=== PATIENT | female | born 1950 | race African-American/Black ===

== ENCOUNTER 2019-07-04 09:07 | Emergency (ER) | payer MEDICARE, OTHER ==
[~2019-07-04] VITALS: Ht 162.6 cm; Wt 63.0 kg
[2019-07-04 11:37] VITALS: BP 121/74
== END 2019-07-04 11:41 | disposition home or self-care (01) ==
LOC: ER 09:07
DX: E05.00 Thyrotoxicosis with diffuse goiter without thyrotoxic crisis or storm (principal); F17.210 Nicotine dependence, cigarettes, uncomplicated; Z76.0 Encounter for issue of repeat prescription

== ENCOUNTER 2021-10-22 08:31 | Emergency (ER) | payer MEDICARE ==
[~2021-10-22] VITALS: Ht 165.1 cm; Wt 57.6 kg
[2021-10-22 09:00] VITALS: BP 128/73
[2021-10-22] MEDS ORDERED: LEVO100T8 PO (10:25)
== END 2021-10-22 10:35 | disposition home or self-care (01) ==
LOC: ER 08:31
DX: E03.9 Hypothyroidism, unspecified (principal); F17.210 Nicotine dependence, cigarettes, uncomplicated; Z76.0 Encounter for issue of repeat prescription

== ENCOUNTER → 2022-05-21 | Outpatient (CLI) | payer MEDICARE ==
[~2022-05-21] MED LIST: LEVO100T8 PO
[2022-05-21 12:25] LABS: Basophils # (auto) 0 10 ^3/uL (0-0.2); Basophils % (auto) 0.8 % (0.0-2.0); Eosinophils # (auto) 0 10 ^3/uL (0-0.8); Eosinophils % (auto) 0.5 % (0.0-7.0); Hematocrit 35.8 % (36.0-46.0); Hemoglobin 11.8 g/dL (12.2-16.2); Lymphocytes # (auto) 2.1 10 ^3/uL (0.4-5.4); Lymphocytes % (auto) 41.2 % (10.0-50.0); Mean Corpuscular Hemoglobin 29.5 pg (28.0-32.0); Mean Corpuscular Volume 89.2 fL (80.0-100.0); Monocytes # (auto) 0.4 10 ^3/uL (0-1.3); Monocytes % (auto) 7.6 % (0.0-12.0); Neutrophils # (auto) 2.6 10 ^3/uL (1.6-8.6); Neutrophils % (auto) 49.9 % (37.0-80.0); Red Blood Cells 4.02 10^6/uL (4.0-5.20); Red Cell Distribution Width 16.5 % (11.8-14.3); White Blood Cell 5.2 10^3/uL (4.4-10.8)
[2022-05-21 13:18] LABS: Albumin 3.7 g/dL (3.4-5.0); BUN/Creatinine Ratio 30.2; Calcium 9.5 mg/dL (8.5-10.1); Potassium 3.7 mmol/L (3.5-5.1)
[2022-05-21 13:20] LABS: Bilirubin, Total 0.6 mg/dL (0.2-1.0); Total Protein 7.6 g/dL (6.4-8.2)
== END | disposition home or self-care (01) ==
LOC: LAB 12:09
PROVIDERS: ATTEND Nurse Practitioner Family
DX: E03.9 Hypothyroidism, unspecified (principal); Z76.89 Persons encountering health services in other specified circumstances
CPT/HCPCS: 36415; 80053; 84439; 84443; 85025

== ENCOUNTER 2023-11-24 09:54 | Inpatient (IN) | payer MEDICARE, OTHER ==
[~2023-11-24] VITALS: Ht 160 cm; Wt 55.5 kg
[2023-11-24] MEDS: ONDANSETRON HCL 4 MG/2 ML VIAL IV ONE (10:50)
[2023-11-24] MEDS: SODIUM CHLORIDE 0.9% 1,000 ML IV ONE (10:50)
[2023-11-24 11:08] LABS: Chloride 98 mmol/L (98-107); Potassium 5.2 mmol/L (3.5-5.1); Sodium 132 mmol/L (136-145)
[2023-11-24 11:09] LABS: Anion Gap 12 (5-15); Carbon Dioxide 22 mmol/L (20-30)
[2023-11-24 11:10] LABS: Calcium 10.1 mg/dL (8.7-10.4); Eosinophils # (auto) 0 10 ^3/uL (0-0.8); Hemoglobin 13.2 g/dL (12.2-16.2); Mean Corpuscular Hemoglobin 29.5 pg (28.0-32.0)
[2023-11-24 11:11] LABS: Basophils # (auto) 0.1 10 ^3/uL (0-0.2); Basophils % (auto) 0.9 % (0.0-2.0); Eosinophils % (auto) 0.1 % (0.0-7.0); Hematocrit 38.6 % (36.0-46.0); Lymphocytes # (auto) 0.8 10 ^3/uL (0.4-5.4); Lymphocytes % (auto) 9.5 % (10.0-50.0); Mean Corpuscular Hgb Conc. 34.3 g/dL (32.0-36.0); Monocytes # (auto) 1.1 10 ^3/uL (0-1.3); Monocytes % (auto) 12.4 % (0.0-12.0); Neutrophils # (auto) 6.6 10 ^3/uL (1.6-8.6); Neutrophils % (auto) 77.1 % (37.0-80.0); Nucleated Red Blood Cells % 0.2 %; Red Blood Cells 4.48 10^6/uL (4.0-5.20); White Blood Cell 8.5 10^3/uL (4.4-10.8)
[2023-11-24 11:14] LABS: Blood Urea Nitrogen 53 mg/dL (9-23); Glucose 122 mg/dL (74-106)
[2023-11-24 11:15] LABS: BUN/Creatinine Ratio 52.5 (10.0-20.0)
[2023-11-24 12:06] VITALS: PULSE 93; RESP 20; O2SAT 97
[2023-11-24 13:18] LABS: Urine Bacteria FEW /hpf (None Seen); Urine Blood Negative /uL (Negative); Urine Clarity Turbid (Clear); Urine Color Dark-Yellow (Yellow); Urine Mucus FEW (None Seen); Urine Protein, UAD 1+ (Negative); Urine Specific Gravity 1.021 (1.001-1.035); Urine Urobilinogen Normal (Negative); Urine WBC 6 /hpf (0 - 5); Urine pH 5.5 (5.0-9.0)
[2023-11-24] MEDS ORDERED: DOCUSATE SOD 100 MG CAP PO PRN (14:00)
[2023-11-24] MEDS ORDERED: HYDROcodone-ACET 5/325MG TAB PO PRN (14:00)
[2023-11-24] MEDS ORDERED: ACETAMINOPHEN 325 MG TAB PO PRN (14:00)
[2023-11-24] MEDS ORDERED: ONDANSETRON HCL 4 MG/2 ML VIAL IV PRN (14:00)
[2023-11-24] MEDS: SODIUM CHLORIDE 0.9% 1,000 ML IV SCH (14:09)
[2023-11-24] MEDS ORDERED: NITROGLYCERIN 0.4 MG SL TAB SL PRN (14:30)
[2023-11-24] MEDS ORDERED: MORPHINE SULFATE INJ 2 MG/ml SYRG IV PRN (14:30)
[2023-11-24] MEDS ORDERED: SODIUM ZIRCONIUM CYCL 10 GM PAK PO ONE (14:45)
[2023-11-24 15:39] VITALS: BP 116/71; RESP 20; TEMP 98.3; O2SAT 96
[2023-11-24 16:00] VITALS: PULSE 102
[2023-11-25] MEDS ORDERED: LEVOTHYROXINE SODIUM 100 MCG TAB PO SCH (06:00)
== END 2023-11-24 19:07 | disposition left against medical advice (07) | DRG 948 ==
LOC: ER 09:54 → TELE 14:24
PROVIDERS: ADMIT Nurse Practitioner Family; ATTEND Nurse Practitioner Family
DX: R53.1 Weakness (principal); E03.9 Hypothyroidism, unspecified; Z53.29 Procedure and treatment not carried out because of patient's decision for other reasons; F17.210 Nicotine dependence, cigarettes, uncomplicated; Z79.899 Other long term (current) drug therapy
CPT/HCPCS: 36415; 80048; 81001; 84443; 84484; 85025; 93005; 96361; 96374; G0378; J2405

== ENCOUNTER 2023-11-29 18:33 | Inpatient (IN) | payer OTHER ==
[2023-11-29] VITALS (20 sets, daily range): BP systolic 89–269; BP diastolic 50–235; PULSE 95–118; RESP 16–35; TEMP 85.8–97.5; O2SAT 96–100
[~2023-11-29] VITALS: Ht 162.6 cm; Wt 57.0 kg
[2023-11-29] MEDS ORDERED: ONDANSETRON HCL 4 MG/2 ML VIAL IV PRN (20:00)
[2023-11-29] MEDS: SUCCINYLCHOLINE CHLORIDE 20 MG/ML 10ML VIAL IV ONE ×2 (20:00→20:59)
[2023-11-29] MEDS ORDERED: ACETAMINOPHEN 325 MG TAB PO PRN (20:00)
[2023-11-29] MEDS: LACTULOSE 20Gm/30ML SOLN PO SCH (20:00)
[2023-11-29] MEDS ORDERED: DOCUSATE SOD 100 MG CAP PO PRN (20:00)
[2023-11-29] MEDS: ETOMIDATE (2MG/ML) 20ML VIAL IV ONE ×2 (20:00→20:59)
[2023-11-29] MEDS ORDERED: HYDROcodone-ACET 5/325MG TAB PO PRN (20:00)
[2023-11-29] MEDS ORDERED: HYDROmorphone HCL 2 MG/ML VL/or syr IV PRN (20:00)
[2023-11-29] MEDS: PROPOFOL 100 ML IV ONE (20:19)
[2023-11-29 20:23] LABS: Basophils # (auto) 0.1 10 ^3/uL (0-0.2); Basophils % (auto) 1.4 % (0.0-2.0); Eosinophils # (auto) 0 10 ^3/uL (0-0.8); Eosinophils % (auto) 0.2 % (0.0-7.0); Hematocrit 38.2 % (36.0-46.0); Hemoglobin 12.8 g/dL (12.2-16.2); Lymphocytes # (auto) 0.7 10 ^3/uL (0.4-5.4); Lymphocytes % (auto) 13.5 % (10.0-50.0); Mean Corpuscular Hemoglobin 28.9 pg (28.0-32.0); Mean Corpuscular Hgb Conc. 33.5 g/dL (32.0-36.0); Mean Corpuscular Volume 86.2 fL (80.0-100.0); Monocytes # (auto) 0.2 10 ^3/uL (0-1.3); Monocytes % (auto) 4.6 % (0.0-12.0); Neutrophils # (auto) 3.9 10 ^3/uL (1.6-8.6); Neutrophils % (auto) 80.3 % (37.0-80.0); Nucleated Red Blood Cells % 1.3 %; Red Blood Cells 4.43 10^6/uL (4.0-5.20); Red Cell Distribution Width 16.3 % (11.8-14.3); White Blood Cell 4.9 10^3/uL (4.4-10.8)
[2023-11-29 20:34] LABS: Alanine Aminotransferase 104 U/L (7-40); Albumin 3.3 g/dL (3.2-4.8); Alkaline Phosphatase 638 U/L (46-116); Anion Gap 16 (5-15); Aspartate Aminotransferase 248 U/L (13-40); Bilirubin, Total 12.4 mg/dL (0.2-1.0); Blood Urea Nitrogen 78 mg/dL (9-23); Calcium 9.7 mg/dL (8.7-10.4); Carbon Dioxide 18 mmol/L (20-30); Chloride 100 mmol/L (98-107); Glucose 158 mg/dL (74-106); Potassium 5.2 mmol/L (3.5-5.1); Sodium 134 mmol/L (136-145); Total Protein 6.2 g/dL (5.7-8.2)
[2023-11-29 20:38] LABS: Lactic Acid w/Reflex 7.6 mmol/L (0.4-2.0)
[2023-11-29] MEDS ORDERED: AMIODARONE BOLUS KIT 100 ML IV ONE (20:45)
[2023-11-29] MEDS: SODIUM CHLORIDE 0.9% 1,000 ML IV SCH ×2 (20:45→20:59)
[2023-11-29] MEDS: PANTOPRAZOLE 40mg/50ML NS AE 50 ML IV SCH (20:45)
[2023-11-29] MEDS: LACTATED RINGER'S 2,000 ML IV ONE (20:45)
[2023-11-29] MEDS: MIDAZOLAM DRIP 50 mg/50mL 50 ML IV ONE (20:57)
[2023-11-29] MEDS: MIDAZOLAM DRIP 50 mg/50mL 50 ML IV SCH (20:57)
[2023-11-29] MEDS: PROPOFOL 100 ML IV SCH (20:58)
[2023-11-29] MEDS: NOREPINEPHRINE 8 MG/250ML KIT 250 ML IV ONE (20:59)
[2023-11-29] MEDS ORDERED: AMIODARONE 450mg/250ml AE 250 ML IV SCH (21:00)
[2023-11-29 21:04] LABS: BUN/Creatinine Ratio 53.1 (10.0-20.0)
[2023-11-29] MEDS: PANTOPRAZOLE 40mg/50ML NS AE 50 ML IV ONE (21:05)
[2023-11-29 21:42] LABS: Base Excess -9.5 mmol/L (-2.0-2.0)
[2023-11-29] MEDS: SODIUM CHLOR 0.9% PF (SALINE LOCK) 10ML VIAL/SYR IV SCH (22:00)
[2023-11-30] VITALS (104 sets, daily range): BP systolic 28–190; BP diastolic 14–136; PULSE 0–123; RESP 16–32; TEMP 94.1–99.9; O2SAT 20–99
[2023-11-30] MEDS: NOREPINEPHRINE 8 MG/250ML KIT 250 ML IV SCH (01:16)
[2023-11-30] MEDS ORDERED: AMIODARONE 450mg/250ml AE 250 ML IV SCH (03:00)
[2023-11-30] MEDS ORDERED: SODIUM BICARB 50mEq/50ml Vial 100 ML in SOD CHL 0.45% 1,000 ML IV SCH (03:00)
[2023-11-30] MEDS: SODIUM BICARB 50mEq/50ml Vial 100 ML in SOD CHL 0.45% 1,000 ML IV SCH (03:39)
[2023-11-30 04:01] LABS: Hematocrit 36.5 % (36.0-46.0); Hemoglobin 12.3 g/dL (12.2-16.2); Mean Corpuscular Hemoglobin 29.8 pg (28.0-32.0); Mean Corpuscular Hgb Conc. 33.8 g/dL (32.0-36.0); Mean Corpuscular Volume 88.3 fL (80.0-100.0); Red Blood Cells 4.13 10^6/uL (4.0-5.20); Red Cell Distribution Width 16.6 % (11.8-14.3); White Blood Cell 2.8 10^3/uL (4.4-10.8)
[2023-11-30 04:05] LABS: Chloride 101 mmol/L (98-107); Sodium 134 mmol/L (136-145)
[2023-11-30 04:06] LABS: Anion Gap 16 (5-15); Calcium 8.9 mg/dL (8.7-10.4); Carbon Dioxide 17 mmol/L (20-30)
[2023-11-30 04:11] LABS: Glucose 122 mg/dL (74-106)
[2023-11-30 04:12] LABS: Magnesium 2.7 mg/dL (1.6-2.6)
[2023-11-30 04:17] LABS: Basophils % (manual) 0 (0.0-2.0); Blast Cells 0; Promyelocytes % 0
[2023-11-30 04:35] LABS: Blood Urea Nitrogen 63 mg/dL (9-23); Potassium 5.7 mmol/L (3.5-5.1)
[2023-11-30 05:01] LABS: Base Excess -18.8 mmol/L (-2.0-2.0)
[2023-11-30 06:51] LABS: Band Neutrophils % (manual) 28; Eosinophils % (manual) 1 (0-7); Large Platelets FEW; Lymphocytes % (manual) 22 (10.0-50.0); Metamyelocytes % 1; Monocytes % (manual) 10 (0-12); Myelocytes % 5; Reactive Lymphocytes 1
[2023-11-30 06:53] LABS: Platelet Estimate Increased
[2023-11-30] MEDS: SODIUM ZIRCONIUM CYCL 10 GM PAK GT ONE (07:49)
[2023-11-30] MEDS: InsuLIN REG 1unit/0.01ml Soln (100units/ml) IV ONE (08:30)
[2023-11-30] MEDS: ALBUTEROL SULF 2.5 MG/0.5ML(0.5%) NEB SOLN NEB ONE (08:30)
[2023-11-30] MEDS: FUROSEMIDE 40 MG/4 ML VIAL IV ONE (08:30)
[2023-11-30] MEDS: ALBUTEROL SULF 2.5 MG/0.5ML(0.5%) NEB SOLN ONE (09:01)
[2023-11-30] MEDS: PHENYLEPHRINE IV 250 ML IV SCH (09:17)
[2023-11-30] MEDS: VASOPRESSIN 20 UNIT/ML ONE (09:21)
[2023-11-30] MEDS: EPINEPHrine HCL 250 ML IV ONE (09:21)
[2023-11-30] MEDS: SODIUM BICARB 8.4% 50Meq/50ml SYR Vial IV ONE ×3 (09:27→10:30)
[2023-11-30 09:29] LABS: INR 2.99 (0.9-1.15); Partial Thromboplastin Time 66.1 SEC (24.5-34.5); Prothrombin Time 29.2 sec (9.3-11.8)
[2023-11-30] MEDS: EPINEPHrine HCL 250 ML IV SCH (09:30)
[2023-11-30 09:35] LABS: Magnesium 2.6 mg/dL (1.6-2.6)
[2023-11-30 09:36] LABS: Phosphorus 4.4 mg/dL (2.4-5.1)
[2023-11-30] MEDS: DOPamine 1600MCG/ML D5W 250 ML IV ONE (09:45)
[2023-11-30] MEDS: VASOPRESSIN 20 UNITS in SODIUM CHL 0.9% 99 ML IV SCH (09:45)
[2023-11-30] MEDS ORDERED: PHENYLEPHRINE IV 250 ML IV SCH (09:45)
[2023-11-30] MEDS ORDERED: diphenhdrAMINE HCL 12.5 MG/5 ML UD PO ONE (09:45)
[2023-11-30] MEDS: DOPamine 1600MCG/ML D5W 250 ML IV SCH (09:48)
[2023-11-30 09:56] LABS: Lactic Acid w/Reflex 17.5 mmol/L (0.4-2.0)
[2023-11-30] MEDS ORDERED: ENOXAPARIN SOD 40 MG/0.4 ML SYRINGE SC SCH (10:00)
[2023-11-30] MEDS: CALCIUM GLUC 1,000mg/50ml-NS 50 ML IV SCH (10:00)
[2023-11-30] MEDS: CALCIUM GLUC 1,000mg/50ml-NS 50 ML IV ONE (10:08)
[2023-11-30] MEDS: SODIUM BICARB 8.4% 50Meq/50ml SYR INJ IV ONE (10:09)
[2023-11-30] MEDS: DEXTROSE (50%) 50ML SYRG IV ONE (10:09)
[2023-11-30] MEDS ORDERED: DEXTROSE 50% SYRINGE 0 ML IV ONE (10:19)
[2023-11-30] MEDS ORDERED: DEXTROSE (50%) 50ML SYRG IV PRN (10:30)
[2023-11-30] MEDS ORDERED: PIPERACILLIN-TAZOB 3.375GM 100 ML IV ONE (10:30)
[2023-11-30 10:43] LABS: Bilirubin, Direct 8.3 mg/dL (<0.3); Bilirubin, Total 10.4 mg/dL (0.2-1.0); Total Protein 5.5 g/dL (5.7-8.2)
[2023-11-30] MEDS: LACTULOSE 20Gm/30ML SOLN PO ONE (12:00)
[2023-11-30] MEDS ORDERED: ALBUMIN 25% 50 ML IV ONE (12:00)
[2023-11-30 12:08] LABS: Base Excess -22.8 mmol/L (-2.0-2.0)
[2023-11-30] MEDS: PIPERACILLIN-TAZOB 3.375GM 100 ML IV ONE (15:03)
[2023-11-30] MEDS: LACTULOSE 20Gm/30ML SOLN PO SCH (15:06)
[2023-11-30] MEDS: SODIUM ZIRCONIUM CYCL 10 GM PAK PO SCH (15:06)
[2023-11-30] MEDS ORDERED: ATROPINE SULF 1 MG/10ml SYR ONE (17:31)
[2023-11-30] MEDS ORDERED: SODIUM BICARB 8.4% 50Meq/50ml SYR Vial IV ONE (19:17)
[2023-11-30] MEDS ORDERED: SODIUM BICARB 8.4% 50Meq/50ml SYR INJ ONE (19:28)
[2023-11-30] MEDS ORDERED: EPINEPHrine HCL 1 MG/10 ML SYRG ONE (19:28)
[2023-11-30] MEDS ORDERED: PIPERACILLIN-TAZOB 3.375GM 100 ML IV SCH (22:00)
== END 2023-11-30 19:51 | DRG 871 ==
LOC: TELE-WESTW 18:45 → TELE-EAST 18:46 → ICU WEST 20:10
PROVIDERS: ADMIT Nurse Practitioner Family; ATTEND Internal Medicine
PROC: 0BH17EZ Insertion of Endotracheal Airway into Trachea, Via Natural or Artificial Opening (ICD-10-PCS; 2023-11-29)
PROC: 5A1945Z Respiratory Ventilation, 24-96 Consecutive Hours (ICD-10-PCS; 2023-11-29)
PROC: 5A12012 Performance of Cardiac Output, Single, Manual (ICD-10-PCS; principal; 2023-11-30)
PROC: 02HV33Z Insertion of Infusion Device into Superior Vena Cava, Percutaneous Approach (ICD-10-PCS; 2023-11-30)
DX: A41.9 Sepsis, unspecified organism (principal); I21.A1 Myocardial infarction type 2; J96.01 Acute respiratory failure with hypoxia; K83.1 Obstruction of bile duct; N17.0 Acute kidney failure with tubular necrosis; R65.21 Severe sepsis with septic shock; K72.00 Acute and subacute hepatic failure without coma; E87.20 Acidosis, unspecified; R18.8 Other ascites; D68.9 Coagulation defect, unspecified; K76.82 Hepatic encephalopathy; E03.9 Hypothyroidism, unspecified; E87.5 Hyperkalemia; E78.5 Hyperlipidemia, unspecified; Z79.899 Other long term (current) drug therapy
CPT/HCPCS: 36415; 36600; 71045; 76705; 80048; 80053; 80061; 80076; 82140; 82306; 82607; 82805; 82962; 83036; 83605; 83690; 83735; 83880; 83930; 84100; 84443; 84484; 85007; 85025; 85027; 85610; 85730; 86850; 86900; 86901; 87070; 87081; 87086; 87205; 92950; 93306; 94002; 94003; G0378; J0171; J0330; J2543; J2704